=== PATIENT | male | born 1990 | race Caucasian/White ===

== ENCOUNTER → 2018-09-03 07:44 | Outpatient (CLI) | payer OTHER, SELFPAY ==
[2018-09-03 11:22] LABS: Anion Gap 10 (5-15); BUN 15 mg/dL (7-18); BUN/Creat Ratio 13.8 RATIO (10-20); Calcium,Total 8.9 mg/dL (8.5-10.1); Chloride 104 mmol/L (98-107); Cholesterol 167 mg/dL (200); Creatinine, Serum 1.09 mg/dL (0.70-1.30); EST Glomerular Filtration Rate 87 mL/min (>60); Est Glom Filt Rate - Afr Amer 105 mL/min (>60); Glucose 98 mg/dL (74-106); High Density Lipoprotein 38 mg/dL; Potassium 4.1 mmol/L (3.5-5.1); Sodium Level 140 mmol/L (136-145); Triglycerides 93 mg/dL; Very Low Density Lipoprotein 19 mg/dL (5-40)
== END ==
PROVIDERS: Family Provider Family Medicine; PCP Family Medicine; Referring Provider Family Medicine; Visit Provider Family Medicine
DX: Z13.1 Encounter for screening for diabetes mellitus (principal); Z13.220 Encounter for screening for lipoid disorders
CPT/HCPCS: 36415; 80048; 80061

== ENCOUNTER → 2019-05-05 10:31 | Outpatient (CLI) | payer OTHER, SELFPAY ==
[2014-05-08 10:21] VITALS: BMI 32.1
--- NOTE | 2019-05-05 10:36 | RAD_ITS ---
STUDY: X-RAY - PARANASAL SINUSES REASON FOR EXAM: Male, 29 years old. Pain. TECHNIQUE: 4 view(s) of the paranasal sinuses were obtained. COMPARISON: None. FINDINGS: Normal visualized frontal, ethmoidal and sphenoid sinuses. Normal right maxillary sinus. Increased density of the left maxillary sinus. No definite air-fluid level. Findings may represent complete opacification. Normal visualized facial bones. The soft tissue structures are unremarkable. RAD/Sinuses min 3 Views IMPRESSION: Opacification of the left maxillary sinus. Recommend further evaluation with CT of the sinuses. Electronically Signed: Mack Coleman MD at 23:28 EDT , Service support ,
== END ==
PROVIDERS: Family Provider Family Medicine; PCP Family Medicine; Referring Provider Family Medicine; Visit Provider Family Medicine
DX: R68.84 Jaw pain (principal)
CPT/HCPCS: 70220

== ENCOUNTER 2019-07-11 18:07 | Emergency (ER) | payer OTHER, SELFPAY ==
[2019-07-11 18:07] VITALS: BP 139/78; PULSE 93; RESP 18; TEMP 36.6; O2SAT 98; BMI 38.0
[2019-07-11 19:49] LABS: Absolute Lymphocyte Count 3.21 X10^3/uL (0.83-4.51); Absolute Neutrophil Count 8.4 X10^3/uL (2.0-7.7); Basophil# 0.03 X10^3/uL; Basophil% 0.2 % (0-1); Eosinophils% 0.8 % (0-5); Hematocrit 46.1 % (40-54); Hemoglobin 15.3 g/dL (13.0-16.5); Lymphocyte # 3.21 X10^3/ul (4.0); Lymphocyte % 25.6 % (19-41); Mean Corp Hgb Conc 33.2 g/dL (32-36); Mean Corpuscular Volume 87.5 fL (80-94); Mean Platelet Vol. 9.4 fl (6.2-12.0); Monocyte# 0.79 X10^3/uL; Monocyte% 6.3 % (0-10); NRBC Flagged by Analyzer 0 % (0-5); Neutrophil # 8.39 X10^3/uL (2.7-7.7); Neutrophil % 66.9 % (47-70); Platelet Count 320 K/mm3 (150-450); RBC Distribution Width CV 13.2 % (11.6-14.6); RBC Distribution Width SD 42.5 fl (35.1-43.9); Red Blood Count 5.27 M/mm3 (4.6-6.2); White Blood Count 12.5 K/mm3 (4.4-11.0)
--- NOTE | 2019-07-11 20:05 | CT_ITS ---
STUDY: CT ABDOMEN AND PELVIS WITH CONTRAST REASON FOR EXAM: Male, 29 years old. Lower abdominal pain with bloody diarrhea RADIATION DOSAGE (If Supplied By Facility): CTDIvol = ( 17.05 ) mGy, DLP = ( 1439.63 ) mGycm TECHNIQUE: Transaxial images were obtained from the dome of the diaphragm to the symphysis pubis without oral contrast. 100 IV/Oral Isovue 300 was administered. Sagittal and coronal images were reconstructed. Individualized dose optimization techniques were used for this CT. COMPARISON: None. FINDINGS: The visualized lung bases are unremarkable. The visualized portions of the heart are within normal limits. There is decreased attenuation of the liver consistent with steatosis. Normal gallbladder and extrahepatic biliary system. Normal spleen. Normal pancreas. Normal bilateral adrenal glands. Normal right kidney. Normal left kidney. Normal visualized stomach. Normal small intestine. Normal colon. The appendix is visualized and appears normal. Normal abdominal aorta. 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 Normal retroperitoneum. Normal urinary bladder. The prostate, seminal vesicles, and seminal vesicle angles appear normal. There is a small umbilical hernia containing fat. Normal osseous structures. CT/Abdomen/Pelvis WITH Contrast IMPRESSION: 1. Hepatic steatosis. 2. Duplicated left IVC. 3. Small fat-containing umbilical hernia. 4. There is no evidence of free intra-abdominal or intrapelvic air, fluid, or inflammatory process. Electronically Signed: Tamir Becker MD at 22:43 EDT , Service support ,
[2019-07-11 20:16] LABS: Anion Gap 6 (5-15); BUN 12 mg/dL (7-18); BUN/Creat Ratio 10.7 RATIO (10-20); Calcium,Total 9.1 mg/dL (8.5-10.1); Chloride 103 mmol/L (98-107); Creatinine, Serum 1.12 mg/dL (0.70-1.30); EST Glomerular Filtration Rate 83 mL/min (>60); Est Glom Filt Rate - Afr Amer 101 mL/min (>60); Estimated Creatinine Clearance 102.29 ml/min; Glucose 92 mg/dL (74-106); Potassium 3.5 mmol/L (3.5-5.1); Sodium Level 138 mmol/L (136-145)
[2019-07-11] MEDS: 0.9% Normal Saline 1,000 ML 1000 ML IV (20:30)
--- NOTE | 2019-07-11 20:55 | ED.VIS.GEN ---
History of Present Illness Chief Complaint: GI Bleed Detail of Chief Complaint: Left lower quadrant pain and bloody diarrhea with mucus Onset: Today - 0400 Context: Sudden Onset Timing: Intermittent Quality: Bloody diarrhea with mucus Location: Pain left lower quadrant Current Severity: Mild Maximum Severity: Moderate Worsened by: Diarrhea Relieved by: Nothing Associated Symptoms: Subjective fever and chills Narrative: Patient is a 29-year-old male presents with left lower quadrant pain and bloody diarrhea with mucus that started at 0400. He has no history of diverticular disease. There is no history of Crohn's or ulcerative colitis. There is family history of ulcerative colitis. He has not consumed any uncooked chicken or eggs. He did have scrambled eggs yesterday. No unusual pets. No one else is ill. Prior similar symptoms: No Recent Illness/Hospitalization: No - Past Medical History (1) No significant past medical history Status: Acute Past Medical History - Allergies and Home Meds Allergies/Adverse Reactions: Allergies Penicillins Allergy (Verified 07/11/19 18:09) Rash amoxicillin [Amoxicillin] Adverse Reaction (Verified 07/11/19 18:09) Rash Primary Care Physician: Akbar Szymanski MD [Primary Care Provider] - Prior records reviewed: No Past Medical History: None Surgical History: no surgical history Lives: Spouse/ Significant Other Smoking Status: Never smoker Alcohol: Rare Drugs: None Review of Systems General: Reports: Chills, Fever, Subjective. Denies: Malaise, Sweats, Weight loss, - Eyes: Denies: Visual changes - bilaterally, Diplopia ENT: Denies: Rhinorrhea, Sore throat Cardiovascular: Denies: Chest pain, Palpitations Respiratory: Denies: Dyspnea, Cough, Dyspnea on exertion Gastrointestinal: Reports: Abdominal pain, Diarrhea, Hematochezia. Denies: Nausea, Vomiting, Melena Genitourinary: Denies: Dysuria, Hematuria, Frequency Musculoskeletal: Denies: Myalgias, Arthralgias, Neck pain, Back pain, Swelling, Extremity Pain Skin: Denies: Rash, Wounds Neurological: Denies: Headache, Weakness, Numbness Hematologic: Denies: Easy bruising, Easy bleeding Allergy: Denies: Uticaria, Swelling of the mouth Physical Exam Vital Signs/Narrative: Vital Signs Temp Pulse Resp BP Pulse Ox 07/11/19 18:07 97.9 F 93 18 139/78 H 98 Inital Vital Signs reviewed: Yes General: Well nourished, Well developed, No Acute Distress Head: Normocephalic, Atraumatic Eyes: Perrl, EOMI ENT: Moist mucous membranes, No rhinorrhea Neck: Supple, Nontender Cardiovascular: Regular rate, Regular rhythm, No murmurs Respiratory: No distress, CTA bilaterally, Chest nontender Abdomen: Soft, Nondistended, Normal bowel sounds, Tender - To deep palpation left lower quadrant Back: Nontender, Normal Inspection. Negative for: CVA tenderness Extremities: Nontender, No edema. Negative for: Tenderness, Edema Skin: Normal color, No rash Neurological: Alert, Oriented x3, Cranial nerves II-XII grossly intact, Normal Strength, Normal Sensation Psychological: Normal affect, Normal Mood Diagnostic/Tx/Re-eval Impressions Abdomen/Pelvis CT 07/11/19 20:05 IMPRESSION: 1. Hepatic steatosis. 2. Duplicated left IVC. 3. Small fat-containing umbilical hernia. 4. There is no evidence of free intra-abdominal or intrapelvic air, fluid, or inflammatory process. Electronically Signed: Tamir Becker MD at 22:43 EDT , Service support , 07/11/19 20:05 Abdomen/Pelvis WITH Contrast [CT] Stat Laboratory Results 07/11/19 07/11/19 07/11/19 19:38 19:38 21:38 WBC 12.5 H RBC 5.27 Hgb 15.3 Hct 46.1 MCV 87.5 MCH 29.0 MCHC 33.2 RDW Std Deviation 42.5 RDW Coeff of Rob 13.2 Plt Count 320 MPV 9.4 Immature Gran % (Auto) 0.200 Neut % (Auto) 66.9 Lymph % (Auto) 25.6 [place] % (Auto) 6.3 Eos % (Auto) 0.8 Baso % (Auto) 0.2 Absolute Neuts (auto) 8.4 H Absolute Lymphs (auto) 3.21 Nucleated RBC % 0 Sodium 138 Potassium 3.5 Chloride 103 Carbon Dioxide 29.0 Anion Gap 6 BUN 12 Creatinine 1.12 Estim Creat Clear Calc 102.29 Est GFR (MDRD) Af Amer 101 Est GFR (MDRD) Non-Af 83 BUN/Creatinine Ratio 10.7 Glucose 92 Calcium 9.1 Urine Color Yellow Urine Clarity Sl. Cloudy Urine pH 6.0 Ur Specific [place] 1.010 Urine Protein 15 H Urine Glucose (UA) Normal Urine Ketones Negative Urine Occult Blood 25 H Urine Nitrite Negative Urine Bilirubin Negative Urine Urobilinogen Normal Ur Leukocyte Esterase Negative CT is unremarkable regarding colitis. There is a small umbilical hernia. White count slightly elevated. - Medical Decision Making Frontal includes infectious versus inflammatory cause of bloody diarrhea. Appropriate blood work was obtained. He was medicated and CT was ordered. This there is no evidence of acute kidney injury, white count is only slightly elevated and CT of the abdomen reveals no acute abnormality we will treat his bloody diarrhea with ciprofloxacin and metronidazole. He was instructed to follow-up with his primary care physician in 2 to 3 days. ED Disposition - Plan for ED Patient: Disposition: Home or Assisted Living Diagnosis: Bloody diarrhea, Mild dehydration Instructions: DIARRHEA, Unk Cause (Adult) Report Pendg Prescriptions: Ciprofloxacin [Cipro] 500 mg PO BID #14 tab Prescription Printed Metronidazole 500 mg PO Q8 #20 tab Prescription Printed Referrals: Akbar Szymanski MD [Primary Care Provider] - 3-5 Days
[2019-07-11 21:13] VITALS: RESP 16
[2019-07-11 21:50] LABS: Bacteria 0 SEEN /hpf (None Seen); Mucous, Urine 0 SEEN /hpf (<or=2+); Squamous Epithelial Cells - UA 0 SEEN /hpf (0-5); White Blood Cells 0 SEEN /hpf (0-5)
[2019-07-11 22:00] LABS: Color, Urine Yellow (Yellow); Glucose, Dipstick Normal (Normal); Ketone-Dipstick Negative (Negative); Leukocyte Esterase-Dipstick Negative /ul (Negative); Nitrite-Dipstick Negative (Negative); Occult Blood-Urine 25 /ul (Negative); Protein-Dipstick 15 mg/dl (Negative); Urine Bilirubin Dipstick Negative (Negative); Urine Clarity Sl. Cloudy (Clear); Urine Urobilinogen Normal (Normal)
[2019-07-11 23:00] LABS: Red Blood Cells-Urine 0-5 SEEN /hpf (0-5)
[2019-07-11] MEDS: Ciprofloxacin 500 MG Tablet PO (23:27)
[2019-07-11] MEDS: metroNIDAZOLE 500 MG Tablet PO (23:27)
[2019-07-11 23:33] VITALS: BP 150/95; PULSE 84; RESP 16; O2SAT 97
--- NOTE | 2019-07-11 23:34 | ED.RN ---
REVIEWED D/C INSTRUCTIONS, FOLLOW UP CARE, PRESCRIPTIONS, AND S/S THAT WOULD WARRANT A RETURN TO THE ED WITH PT. PT VERBALIZED AN UNDERSTANDING AND DENIES FURTHER QUESTIONS FOR THIS RN. PT SKIN P/W/D, REPS EVEN AND UNLABORED, PT A&O X 3, NO DISTRESS NOTED. PT AMBULATED OUT OF ED, GAIT STEADY.
== END 2019-07-11 23:35 | disposition home or self-care (01) ==
PROVIDERS: Emergency Provider Emergency Medicine; Family Provider Family Medicine; PCP Family Medicine
DX: K92.1 Melena (principal); E86.0 Dehydration; K42.9 Umbilical hernia without obstruction or gangrene; K76.0 Fatty (change of) liver, not elsewhere classified
CPT/HCPCS: 74177; 80048; 81001; 85025; 87506; 96360; 99284; J7030; Q9967; A4216

== ENCOUNTER → 2020-08-30 17:00 | Outpatient (CLI) | payer OTHER, SELFPAY | PROVIDERS: PCP Family Medicine; Referring Provider Family Medicine; Visit Provider Family Medicine | DX: H60.509 Unspecified acute noninfective otitis externa, unspecified ear (principal) | CPT/HCPCS: 87070; 87205 ==

== ENCOUNTER 2022-02-04 15:41 | Outpatient (CLI) | payer OTHER, SELFPAY ==
--- NOTE | 2022-02-04 15:47 | RAD_ITS ---
EXAM: XR SINUSES/PARANASAL COMPLETE, 3 OR MORE VIEWS CLINICAL INDICATION: SINUSITIS Technologist Notes ALLERGIES, SORENESS BILATERALLY TECHNIQUE: Frontal, lateral and Howard views of the sinuses and paranasal structures. This report was created using [employer] report generation technology. COMPARISON: May 05 2019 10:48am FINDINGS: BONES/JOINTS: Unremarkable. The regional bones are grossly intact. SINUSES: Unremarkable. No significant mucosal thickening. There are no air-fluid levels. RAD/Sinuses min 3 Views IMPRESSION: Negative sinus series. Electronically Signed: Teodoro Mustafa MD at 16:20 EST Reading Location ID and State: [facility] / [place] , Service support ,
== END 2022-02-04 23:59 | disposition home or self-care (01) ==
LOC: MTRAD 15:45
PROVIDERS: PCP Family Medicine; Referring Provider Family Medicine; Visit Provider Family Medicine
DX: J32.9 Chronic sinusitis, unspecified (principal)
CPT/HCPCS: 70220

== ENCOUNTER → 2022-03-28 | Outpatient (CLI) | payer OTHER, SELFPAY ==
[2022-03-28 12:34] LABS: Anion Gap 5 (5-15); BUN 15 mg/dL (7-18); BUN/Creat Ratio 13.6 RATIO (10-20); Calcium,Total 8.9 mg/dL (8.5-10.1); Chloride 106 mmol/L (98-107); Cholesterol 188 mg/dL (200); EST Glomerular Filtration Rate 83 mL/min (>60); Est Glom Filt Rate - Afr Amer 101 mL/min (>60); Glucose 100 mg/dL (74-106); High Density Lipoprotein 45 mg/dL; Potassium 3.7 mmol/L (3.5-5.1); Sodium Level 138 mmol/L (136-145); Triglycerides 72 mg/dL; Very Low Density Lipoprotein 14 mg/dL (5-40)
== END | disposition home or self-care (01) ==
LOC: MFPLAB 10:05
PROVIDERS: PCP Family Medicine; Referring Provider Family Medicine; Visit Provider Family Medicine
DX: Z13.1 Encounter for screening for diabetes mellitus (principal); Z13.220 Encounter for screening for lipoid disorders
CPT/HCPCS: 36415; 80048; 80061

== ENCOUNTER → 2024-07-04 | Outpatient (CLI) | payer BC, SELFPAY ==
[2024-07-04 12:32] LABS: Hemoglobin A1c 5.7 % (3.8-5.6)
[2024-07-04 12:38] LABS: ALB/GLOB Ratio 0.9 RATIO (0.9-2.4); AST(SGOT) 21 U/L (15-37); Alanine Aminotransfer ALT/SGPT 54 U/L (16-61); Albumin, Serum 3.6 g/dL (3.2-5.0); Alkaline Phosphatase 66 U/L (45-117); Anion Gap 7 (5-15); BUN 15 mg/dL (7-18); BUN/Creat Ratio 13.8 RATIO (10-20); Calcium,Total 9.2 mg/dL (8.5-10.1); Chloride 106 mmol/L (98-107); Cholesterol 157 mg/dL (200); Creatinine, Serum 1.09 mg/dL (0.70-1.30); EST Glomerular Filtration Rate 83 mL/min (>60); Est Glom Filt Rate - Afr Amer 101 mL/min (>60); Globulin 3.8 g/dL (2.2-4.2); Glucose 107 mg/dL (74-106); High Density Lipoprotein 43 mg/dL; Protein, Total 7.4 g/dL (6.4-8.2); Sodium Level 139 mmol/L (136-145); Triglycerides 93 mg/dL; Very Low Density Lipoprotein 19 mg/dL (5-40)
== END | disposition home or self-care (01) ==
LOC: MTLAB 09:39
PROVIDERS: PCP Family Medicine; Referring Provider Family Medicine; Visit Provider Family Medicine
DX: E66.9 Obesity, unspecified (principal); Z13.220 Encounter for screening for lipoid disorders; Z13.1 Encounter for screening for diabetes mellitus
CPT/HCPCS: 36415; 80053; 80061; 83036

== ENCOUNTER 2024-11-08 06:10 | Day surgery (SDC) | payer SELFPAY ==
[2024-11-08] VITALS (10 sets, daily range): BP systolic 139–158; BP diastolic 90–104; PULSE 80–100; RESP 16–18; TEMP 36.9–38.1; O2SAT 98–100; BMI 36.6
[2024-11-08] MEDS: Glucagon 1 MG/ML Syringe IV (06:35)
--- NOTE | 2024-11-08 06:43 | EDS_ITS ---
HPI HPI - GI History of Present Illness Chief Complaint: Foreign Body Detail of Chief Complaint: Alo roast stuck in his esophagus. Informant: patient Abdominal Pain/Flank Pain Onset: Today and Yesterday Context: Gradual Onset Timing: Continuous Current Severity: Mild Maximum Severity: Mild Nausea/Vomiting/Emesis GI Symptom: Negative for Nausea or Vomiting Diarrhea/Melena/Hematochezia GI Symptom: Negative for Diarrhea, Melena or Hematochezia Associated Symptoms Associated Symptoms: Negative for Dysuria, Frequency, Hematuria or Urgency Narrative Narrative: 34-year-old male no seen past medical history. Says he eats quickly. He was eating chocolate roast yesterday around 7 PM for dinner. Believes he has some of it stuck in his distal esophagus. Says he tries to drink too fast and cannot swallow it and it comes back up. Complaining of mild discomfort. No trouble breathing. No other complaints. Prior similar symptoms: No Recent Illness/Hospitalization: No PFSH PFSH Medical History no medical history no medical history Home Medications ?Medication ?Instructions ?Recorded ?Last Taken ?Type NK 11/08/24 Unknown History Allergy/AdvReac Type Severity Reaction Status Date / Time Penicillins Allergy Rash Verified 11/08/24 06:12 amoxicillin (Amoxicillin) AdvReac Rash Verified 11/08/24 06:12 Family History no significant family his Surgical History no surgical history Social History Smoking Status: Never smoker ROS ROS ED ROS Narrative Denies recent illness. Constitutional Constitutional ED: Denies chills or fever(s) ENT ENT ED: Denies ear pain Cardiovascular Cardiovascular: Denies chest pain Respiratory/Chest Respiratory/Chest: Denies cough or dyspnea Gastrointestinal Gastrointestinal: Denies abdominal pain Genitourinary Genitourinary ED: Denies dysuria or hematuria Musculoskeletal Musculoskeletal: Denies arthralgias Integumentary Denies abscess or Abrasions Neurologic Neurologic: Denies headache(s) Psychiatric Psychiatric: Denies anxiety or depression Endocrine Endocrinology: Denies polydipsia Hematologic/Lymphatic Hematologic/Lymphatic: Denies easy bleeding or easy bruising Allergic/Immunologic Allergic/Immunologic ED: Denies mouth swelling, tongue swelling or urticaria EXAM Physical Exam Narrative Exam Narrative: Well-appearing 34-year-old male. Vital signs stable afebrile. No acute distress. Pulse ox 9 9% on room air no hypoxia. No trouble swallowing or breathing at this time. He is able to handle his own secretions. He is not choking. H EENT exam pupils round reactive light. Moist mucous membranes. Able to drink small sips of water and handles own secretions without difficulty. Neck nontender. Lungs clear to auscultation bilaterally. Heart regular rate and rhythm rate about 85 no murmur. Chest wall ribs nontender. Abdomen soft nontender. Moving all 4 extremities. Calves are nontender without edema. Normal strength. He is awake and alert. No focal motor deficits. Answering questions and following commands. Const Vital Signs: 11/08/24 06:12 11/08/24 06:14 Temperature 98.4 F Temperature Source Oral Pulse Rate 86 Respiratory Rate 18 Respiratory Pattern Normal Blood Pressure 156/98 H Blood Pressure Mean 117 Pulse Ox 99 Oxygen Delivery Method Room Air Positive well nourished and well developed; Negative for obese, cachectic or contractures General Appearance ED: well developed and NAD; Negative for cachectic, contractures or pallor Nutritional Appearance: Negative for cachectic or obese HEENT Reports moist mucous membranes normocephalic and atraumatic; Negative for trauma or tenderness Eyes PERRL and EOMs intact bilaterally General Eye ED: Negative for pale conjunctiva, scleral icterus or other Neck no lymphadenopathy, supple and no JVD Resp normal respiratory effort and clear to auscultation bilaterally Cardio regular rate, regular rhythm, S1 normal heart sound, S2 normal heart sound and no murmurs Rate: Negative for bradycardia or tachycardic Rhythm: Negative for abnormal rhythm GI non-tender, non-distended and no masses Inspection: Negative for abdominal distention Auscultation: normoactive bowel sounds Palpation: soft; Negative for tender, guarding or rebound tenderness present Back/Spine no CVA tenderness General Back: Negative for CVA tenderness Cervical Spine: Negative for cervical spine tenderness Thoracic Spine / Upper Back: Negative for thoracic spinal tenderness Lumbar Spine / Lower Back: Negative for lumbar spinal tenderness Extremity full ROM General Extremety ED: Negative for edema or tenderness General Extremity: Negative for edema Neuro CN's II-XII intact bilaterally and moves all extremities Sensorium / Orientation: alert, oriented to person, oriented to place and oriented to time; Negative for orientation impaired, confused, lethargic or stuporous Motor Exam: strength 5/5 throughout Psych mental status grossly normal and thought process normal Appearance: Negative for other Attitude: No agitated Mood & Affect: Negative for depressed, anxious or tearful Skin no wounds General Skin Exam: Negative for jaundice or pallor Lesions: no lesions Rashes: no rashes Trauma: Negative for abrasion Nails: Negative for discolored MDM MDM MDM Narrative Medical decision making narrative: Well-appearing 34-year-old male possible esophageal food bolus obstruction. If he has an obstruction it is only partial he is able to handle his own secretions and swallow some water. He will be given IV glucagon and reassessed. Repeat exam at 6:57 AM he is able to drink water and keep it down. But he says that drink it slowly and feels like there is something stuck in his distal esophagus. He is received IV glucagon currently there is been no change. I will contact GI for evaluation and possible upper endoscopy. Repeat exam at 7:15 AM patient still when he swallows quickly brings up the liquid suspicious for distal esophageal obstruction secondary to food bolus. I spoke to Dr. Magana of GI. He will contact endoscopy and see what time he can do an upper scope on the patient. History & Record Review Discussion w/independent historian: Patient Discharge Plan Triage Chief Complaint: Foreign Body ED Provider: Spencer Sawyer Dx/Rx/DC Orders Clinical Impression: Difficulty swallowing, Esophageal foreign body Prescriptions: No Action NK Primary Care Provider: Igor Szymanski Referrals: Igor Szymanski MD [Primary Care Provider] - Print Language: Nepali Disposition Disposition: Home, Self Care
--- NOTE | 2024-11-08 11:07 | PCM.PRE.AN2 ---
ASA Classification* ASA Classification ASA Classification: 1 Assessment & Plan Anesthesia* Anesthesia Assessment Anesthesia Assessment: Discussed sedation and/or anesthesia options, risks, benefits, and alternatives with patient/parents/legal guardian/POA. Questions invited. The patient/parents/legal guardian/POA seems to understand and agrees to proceed with anesthesia plan. Reviewed the physical assessment, medical history, allergy history and patient home medications list prior to surgery/procedure/anesthetic and documented any changes. Performed airway and anesthesia risk assessments. Anesthesia Type Anesthesia Type: MAC History Source History Obtained from:: Patient and Chart Anesthesia Focused Assessment* Temperature: 98.4 F Pulse Rate: 80 Blood Pressure: 156/98 Respiratory Rate: 18 Pulse Ox: 99 Oxygen Delivery Method: Room Air Airway Assessment Mouth opens: >3 cm Mallampati Score: I Teeth Condition: Intact Neck Range of motion (ROM): Full ROM Focused Labs Anesthesia Preop lab: CBC WBC 12.5 K/mm3 (4.4-11.0) H 07/11/19 19:38 RBC 5.27 M/mm3 (4.6-6.2) 07/11/19 19:38 Hgb 15.3 g/dL (13.0-16.5) 07/11/19 19:38 Hct 46.1 % (40-54) 07/11/19 19:38 Plt Count 320 K/mm3 (150-450) 07/11/19 19:38 CHEMISTRY Potassium 4.0 mmol/L (3.5-5.1) 07/04/24 09:42 Sodium 139 mmol/L (136-145) 07/04/24 09:42 BUN 15 mg/dL (7-18) 07/04/24 09:42 Creatinine 1.09 mg/dL (0.70-1.30) 07/04/24 09:42 Glucose 107 mg/dL (74-106) H 07/04/24 09:42 COAG Pre-Assessment Diagnosis/Proposed Procedure Planned Operative Procedure(s): EGD Anesthesia History 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 When Was Last Pacemaker Check QUESTION #4 FULL TEXT: You/Your Family Experience fever (hyperthermia) with Anesthesia Last Oral Intake Last Oral intake: Last Oral Intake NPO since Meds taken in AM with sips of water? Meds patient instructed to take am of surgery Any additional information?: Yes NPO since: 18:30 (Patient last ate at 1830 previous evening. This is the source of the current lodged food.) Meds taken in AM with sips of water?: No PONV PONV - dialysis equipment technician: PONV - dialysis equipment technician Female HX of Motion Sickness HX of N/V After Surgery Non-Smoker Duration of Surgery greater than 60 minutes Number of Risk Factors PONV Score Height & Weight Height & Weight: Anesthesia: Height & Weight Height 5 ft 11 in 11/08/24 06:12 Weight: 118.977 kg 11/08/24 06:12 Body Mass Index (BMI) 36.6 11/08/24 06:12 Respiratory Assessment Respiratory Assessment - dialysis equipment technician: Respiratory Tract Infection Hx - dialysis equipment technician Hx Respiratory Tract Infection Any additional information?: Yes Hx Respiratory Tract Infection: No STOP Sleep Apnea STOP Sleep Apnea - dialysis equipment technician: STOP Sleep Apnea - dialysis equipment technician Hx Hypertension No 07/11/19 19:17 Hx Sleep Apnea CPAP BIPAP Do you snore loudly (louder than talking or can be heard Do you often feel tired/ fatigued/ sleepy during daytime? Has anyone observed you stop breathing during sleep? STOP Results QUESTION #5 FULL TEXT : Do you snore loudly (louder than talking or can be heard through closed doors)? 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 Specify any problems Hx of Preganancy in last 3 Months Nurse Filling Out Transfusion & Questions: Date: Time: Patient unable to answer at this time (ie. confused, unrespo /Reproduction History /Reproductive History - dialysis equipment technician: /Reproductive Hx- dialysis equipment technician Hx Now Gestational Age (in weeks): EDC: Hx Hx Para Hx Section SAB PFSH Medical History no medical history Home Medications ?Medication ?Instructions ?Recorded ?Last Taken ?Type NK 11/08/24 Unknown History Allergy/AdvReac Type Severity Reaction Status Date / Time Penicillins Allergy Rash Verified 11/08/24 06:12 amoxicillin (Amoxicillin) AdvReac Rash Verified 11/08/24 06:12 Family History no significant family his Surgical History (Updated 11/08/24 @ 11:[address] Rambo Gorman MD) S/P wisdom tooth extraction Surgical History no surgical history Social History Smoking Status: Never smoker Review of Systems (Anesthesia) ROS Narrative System reviewed and no additional complaints, except as documented.
--- NOTE | 2024-11-08 11:56 | PCM.HP.STD ---
HPI - General General Date of Admission: 11/08/24 Date of Service: 11/08/24 Chief Complaint: dysphagia HPI Narrative GALEN HELM, is a 34-year-old male no seen past medical history. Says he eats quickly. He was eating chocolate roast yesterday around 7 PM for dinner. Believes he has some of it stuck in his distal esophagus. Says he tries to drink too fast and cannot swallow it and it comes back up. Complaining of mild discomfort. No trouble breathing. No other complaints. [facility] Medical History no medical history Home Medications ?Medication ?Instructions ?Recorded ?Last Taken ?Type NK 11/08/24 Unknown History Allergy/AdvReac Type Severity Reaction Status Date / Time Penicillins Allergy Rash Verified 11/08/24 06:12 amoxicillin (Amoxicillin) AdvReac Rash Verified 11/08/24 06:12 Family History no significant family his Surgical History (Updated 11/08/24 @ 11:[address] Rambo Gorman MD) S/P wisdom tooth extraction Surgical History no surgical history Social History Smoking Status: Never smoker ROS Review of Systems ROS Unobtainable: other Constitutional Constitutional: Denies fatigue, fever(s), poor appetite, weight gain or weight loss ENT HEENT: Denies mouth lesions Cardiovascular Cardiovascular: Denies abdominal bloating, abdominal edema or abdominal pain Respiratory/Chest Respiratory/Chest: Denies change in mental status, change in phlegm color, chest congestion or chest tightness Gastrointestinal Gastrointestinal: Denies belching, bloating, change in bowel habits, change in stool character, chewing difficulty, coffee ground emesis, constipation, cramping, diarrhea, dyspepsia, dysphagia, early satiety, excessive flatus, fecal incontinence, heartburn, hematemesis, hematochezia, hemorrhoids, loose stools, melena, nausea, odynophagia, rectal bleeding, tenesmus, vomiting or weight changes Genitourinary Genitourinary: Denies abdominal discomfort, burning urination or itching Musculoskeletal Musculoskeletal: Reports as per HPI; Denies muscle weakness or myalgias Integumentary Integumentary: Denies jaundice Neurologic Neurologic: Denies lack of coordination or weakness Psychiatric Psychiatric: Denies confusion, depression, memory loss, mood swings, paranoia or suicidal ideation Endocrine Endocrinology: Denies systems reviewed and no addt'l complaints, except as documented Hematologic/Lymphatic Hematologic/Lymphatic: Denies anemia, easy bleeding, easy bruising or lymphadenopathy Allergic/Immunologic Allergic/Immunologic: Denies systems reviewed and no addt'l complaints, except as documented Vital Signs Vital Signs Vital Signs: 11/08/24 06:12 11/08/24 06:14 11/08/24 10:12 Temperature 98.4 F Temperature Source Oral Pulse Rate 86 80 Respiratory Rate 18 18 Respiratory Pattern Normal Blood Pressure 156/98 H Blood Pressure Mean 117 Pulse Ox 99 Oxygen Delivery Method Room Air 11/08/24 10:54 11/08/24 11:10 Temperature 98.4 F 98.4 F Temperature Source Pulse Rate 80 80 Respiratory Rate 18 18 Respiratory Pattern Blood Pressure 156/98 H 156/98 H Blood Pressure Mean 117 Pulse Ox 99 99 Oxygen Delivery Method Room Air Weight Weight: 262 lb 4.8 oz Body Mass Index (BMI) 36.6 Physical Exam Const alert General Appearance: cooperative Orientation / Consciousness: oriented to person HEENT hearing grossly normal bilaterally Head and Scalp: normal to inspection Face and Sinus: face symmetric Nose: external nose normal Mouth: oral and palatal mucosa normal Eyes conjunctivae normal General Eye: normal appearance of both eyes Neck full ROM General: normal visual inspection Lymph Lymphatic: no lymphadenopathy noted Chest inspection of chest normal and palpation of chest normal Chest: symmetrical chest wall rise Resp normal respiratory effort Effort and Inspection: able to speak in complete sentences Cardio regular rate GI non-distended Percussion: normal to percussion Rectal Exam: deferred Neuro Speech: speech normal Gait (Neuro): normal gait Assessment & Plan Assessment/Plan (1) Esophageal foreign body: (2) Difficulty swallowing: PLAN: Plan 34-year-old comes in with esophageal dysphagia. Differential diagnosis does include food bolus obstruction secondary to eosinophilic esophagitis, Schatzki ring, or esophagitis, esophageal dysmotility disorder. He will undergo upper endoscopy with food bolus removal. He was explained alternatives, risk, and benefits including not withstanding bleeding, infection, sepsis, perforation, need for charge and . He will have an ASA of 3.
--- NOTE | 2024-11-08 12:18 | OP.EGD_ITS ---
Patient Name: Rick Rain Procedure Date: 11/08/2024 10:51 AM Date of : 1990 Age: 34 Procedure: Upper GI endoscopy Indications: Dysphagia Providers: Robin Magana DO Medicines: Monitored Anesthesia Care Complications: No immediate complications. Procedure: Pre-Anesthesia Assessment: - Prior to the procedure, a History and Physical was performed, and patient medications and allergies were reviewed. The patient is competent. The risks and benefits of the procedure and the sedation options and risks were discussed with the patient. All questions were answered and informed consent was obtained. Patient identification and proposed procedure were verified by the physician in the pre-procedure area. Mental Status Examination: alert and oriented. Airway Examination: normal oropharyngeal airway and neck mobility. Respiratory Examination: clear to auscultation. CV Examination: normal. Prophylactic Antibiotics: The patient does not require prophylactic antibiotics. Prior Anticoagulants: The patient has taken no anticoagulant or antiplatelet agents except for NSAID medication. ASA Grade Assessment: II - A patient with mild systemic disease. After reviewing the risks and benefits, the patient was deemed in satisfactory condition to undergo the procedure. The anesthesia plan was to use monitored anesthesia care (MAC). Immediately prior to administration of medications, the patient was re-assessed for adequacy to receive sedatives. The heart rate, respiratory rate, oxygen saturations, blood pressure, adequacy of pulmonary ventilation, and response to care were monitored throughout the procedure. The physical status of the patient was re-assessed after the procedure. After obtaining informed consent, the endoscope was passed under direct vision. Throughout the procedure, the patient's blood pressure, pulse, and oxygen saturations were monitored continuously. The gastroscope was introduced through the mouth, and advanced to the second part of duodenum. The upper GI endoscopy was accomplished without difficulty. The patient tolerated the procedure well. Scope In: 12:07:56 PM Scope Out: 12:12:52 PM Total Procedure Duration Time 0 hours 4 minutes 56 seconds Findings: Food was found in the lower third of the esophagus. Removal was accomplished with a Harper net. Verification of patient identification for the specimen was done. Estimated blood loss was minimal. The entire examined stomach was normal. The second portion of the duodenum was normal. Impression: - Food in the lower third of the esophagus. Removal was successful. - Normal stomach. - Normal second portion of the duodenum. Recommendation: - Discharge patient to home. - Full liquid diet today. - Use Protonix (pantoprazole) 40 mg PO daily. - Continue present medications. Procedure Code(s): --- Professional --- 43056, Esophagogastroduodenoscopy, flexible, transoral; with removal of foreign body(s) CPT copyright 2021 [employer]. All rights reserved. The codes documented in this report are preliminary and upon community liaison review may be revised to meet current compliance requirements. Robin Magana DO 11/08/2024 12:17:52 PM This report has been signed electronically. Number of Addenda: 0 Note Initiated On: 11/08/2024 10:51 AM
--- NOTE | 2024-11-08 12:18 | OP.CCLET_ITS ---
11/08/2024 Akbar Szymanski [address] [place] [address] Re : Upper GI endoscopy procedure for Rick Rain Dear Dr. Szymanski This procedure was performed on Friday, November 08, 2024. My impressions and recommendations are as follows: Impressions : - Food in the lower third of the esophagus. Removal was successful. - Normal stomach. - Normal second portion of the duodenum. Recommendations : - Discharge patient to home. - Full liquid diet today. - Use Protonix (pantoprazole) 40 mg PO daily. - Continue present medications. My findings are described in the full procedure note, which is enclosed. If I can be of further assistance, please feel free to contact me at . Sincerely, Robin Magana, 11/08/2024 12:17:52 PM This report has been signed electronically.
--- NOTE | 2024-11-08 16:29 | PCM.POST.ANE ---
Anesthesia: Postop Eval I Current Vital Signs Temperature: 98.4 F Pulse Rate: 80 Blood Pressure: 156/98 Respiratory Rate: 18 Pulse Ox: 99 Oxygen Delivery Method: Room Air Assessment Airway patent: Yes Spontaneous unlabored respirations: Yes Mental status: Awake and Calm nausea: No Vomiting: No Anesthesia Complication: No Fluid Hydration Crystalloid volume administer (ml): 20 Total IV fluid infused: 20 Progress Note Anesthesia document: Postop Eval 1 completed: Yes
--- NOTE | 2024-11-08 16:39 | PCM.POSTANE2 ---
Anesthesia Postop Eval I Sum Postop Eval Completion status Anesthesia document: Postop Eval 1 completed: Yes Anesthesia Postop Eval I Summary Anesthesia Postop Eval I Summary: Anesthesia Postop Eval I: Assessment Summary Airway patent Yes 11/08/24 16:31 Spontaneous unlabored Yes 11/08/24 16:31 respirations Mental status Awake,Calm 11/08/24 16:31 nausea No 11/08/24 16:31 Vomiting No 11/08/24 16:31 Anesthesia Postop Eval I: Fluid Summary Crystalloid volume administer 20 11/08/24 16:31 (ml) Colloids volume administered ( ml) Blood Product volume administered (ml) Total IV fluid infused 20 11/08/24 16:31 Anesthesia Postop Eval I: Summary Notes Anesthesia Complication No 11/08/24 16:31 Anesthesia Complication Comment: Post-operative progress note Anesthesia: Postop Eval II Evaluation Mental status: Awake and Calm Pain Level: 0 nausea: No Vomiting: No Complications Anesthesia Complication: No
== END 2024-11-08 13:01 | disposition home or self-care (01) ==
LOC: ED 09:16 → SDC 10:51 → ACINP 10:52
PROVIDERS: Emergency Provider Emergency Medicine; PCP Family Medicine; Referring Provider Family Medicine; Visit Provider Internal Medicine Gastroenterology
PROC: 0DJ08ZZ Inspection of Upper Intestinal Tract, Via Natural or Artificial Opening Endoscopic (ICD-10-PCS; CPT 43235; principal; 2024-11-08 11:25)
DX: R13.10 Dysphagia, unspecified (principal); T18.108A Unspecified foreign body in esophagus causing other injury, initial encounter
CPT/HCPCS: 43247; 99284; A4216; J1610; J2405